=== PATIENT | male | born 1990 | race African-American/Black ===

== ENCOUNTER 2018-01-11 20:57 | Emergency (ER) | payer BC ==
--- NOTE | 2018-01-11 21:42 | EDM.PDOC ---
ED HPI GENERAL MEDICAL PROBLEM - General Chief Complaint: Upper Extremity Injury/Pain Stated Complaint: ARM HURT DUE TO A FALL IN [facility] Time Seen by Provider: 01/11/18 21:10 Source of Information: Reports: Patient History Limitations: Reports: No Limitations - History of Present Illness INITIAL COMMENTS - FREE TEXT/NARRATIVE: HISTORY AND PHYSICAL: History of present illness: [Patient comes to the emergency room for evaluation of left hand pain and right shoulder pain. He was walking in [facility] when he thinks that he slipped on some fruit that was on the floor causing him to slip and fall landing on his left arm and hand. He is complaining of left hand pain and right shoulder pain. This incident occurred about an hour prior to arrival in the ER. He has not taken any medication for his symptoms. no prior injuries to these areas Review of systems: As per history of present illness and below otherwise all systems reviewed and negative. Past medical history: As per history of present illness and as reviewed below otherwise noncontributory. Surgical history: As per history of present illness and as reviewed below otherwise noncontributory. Social history: No reported history of drug or alcohol abuse. Family history: As per history of present illness and as reviewed below otherwise noncontributory. Physical exam:. Gen.: Well-developed well-nourished dark skinned male in no acute distress. Extremities: Shoulder is atraumatic in appearance. Nontender with palpation. He has full range of motion of his right shoulder. No crepitus. Left hand is atraumatic in appearance. He is tender over the proximal metacarpals overlying the thumb area. No bruising or swelling appreciated. He has full range of motion. Neurovascular unremarkable. Neuro: Awake, alert, oriented. Motor and sensory unremarkable throughout. Exam nonfocal. Diagnostics: [R shoulder xray, L hand xray] Impression: [Right shoulder pain Left hand plain] Plan: [Discussed with patient that his x-rays show no abnormalities. Recommend close follow-up with local primary care, Tylenol alternating with ibuprofen as needed for discomfort. Ice packs may also help. He is in agreement with today's discussion. He is referred to local primary care] Definitive disposition and diagnosis as appropriate pending reevaluation and review of above. R shoulder, Left Hand Pain Score (Numeric/FACES): 8 - Related Data Allergies Allergy/AdvReac Type Severity Reaction Status Date / Time No Known Allergies Allergy Verified 01/11/18 21:23 Home Meds: Home Meds . [No Known Home Meds] 01/11/18 [History] Past Medical History - Past Health History Medical/Surgical History: Denies Medical/Surgical History Social & Family History - Family History Family Medical History: Noncontributory - Tobacco Use Smoking Status *Q: Current Every Day Smoker Years of Tobacco use: 8 Packs/Tins Daily: 0.1 - Caffeine Use Caffeine Use: Reports: Coffee, Energy Drinks, Tea - Alcohol Use Days Per Week of Alcohol Use: 2 Number of Drinks Per Day: 4 Total Drinks Per Week: 8 - Recreational Drug Use Recreational Drug Use: No Review of Systems - Review of Systems Review Of Systems: ROS reveals no pertinent complaints other than HPI. ED EXAM, GENERAL - Physical Exam Exam: See Below Course - Vital Signs Last Recorded V/S: Last Vital Signs Temp 97.2 F 01/11/18 21:21 Pulse 71 01/11/18 21:21 Resp 18 01/11/18 21:21 BP 156/63 H 01/11/18 21:21 Pulse Ox 94 L 01/11/18 21:21 - Orders/Labs/Meds Orders: Active Orders 24 hr Category Date Time Status Hand 2V Lt [CR] Stat Exams 01/11/18 21:21 Taken Shoulder Comp Rt [CR] Stat Exams 01/11/18 21:21 Taken Departure - Departure Time of Disposition: 22:00 Disposition: Home, Self-Care 01 Condition: Good Clinical Impression: Right shoulder pain, Left hand pain - Discharge Information Referrals: PCP,None [Primary Care Provider] - Forms: ED Department Discharge Additional Instructions: The following information is given to patients seen in the emergency department who are being discharged to home. This information is to outline your options for follow-up care. We provide all patients seen in our emergency department with a follow-up referral. The need for follow-up, as well as the timing and circumstances, are variable depending upon the specifics of your emergency department visit. If you don't have a primary care physician on staff, we will provide you with a referral. We always advise you to contact your personal physician following an emergency department visit to inform them of the circumstance of the visit and for follow-up with them and/or the need for any referrals to a consulting specialist. The emergency department will also refer you to a specialist when appropriate. This referral assures that you have the opportunity for follow-up care with a specialist. All of these measure are taken in an effort to provide you with optimal care, which includes your follow-up. Under all circumstances we always encourage you to contact your private physician who remains a resource for coordinating your care. When calling for follow-up care, please make the office aware that this follow-up is from your recent emergency room visit. If for any reason you are refused follow-up, please contact the [facility] emergency department at and asked to speak to the emergency department charge nurse. [facility] [address] [place] [id number] Your x-rays show no abnormality. Follow-up with your local primary care provider or establish care at the clinic listed above. Tylenol alternating with ibuprofen as needed for discomfort. Ice packs may be helpful. Return to ER as needed as discussed. - My Orders Last 24 Hours: My Active Orders 01/11/18 21:21 Hand 2V Lt [CR] Stat Shoulder Comp Rt [CR] Stat - Assessment/Plan Last 24 Hours: My Active Orders 01/11/18 21:21 Hand 2V Lt [CR] Stat Shoulder Comp Rt [CR] Stat
--- NOTE | 2018-01-13 12:01 | CR ---
EXAM DATE: 01/11/18 PATIENT'S AGE: 27 Patient: KAYLEY RODRIGUES Facility: [place], [place] Site . Site : 1990 Study: XRay Extremity Left hand [id number]/31/2018 9:48:12 PM Ordering Physician: Doctor Andrews Final Report: INDICATION: Fall, hand pain TECHNIQUE: Hand radiograph 2 views left COMPARISON: None FINDINGS: Bones: No acute fractures or aggressive bone lesions are identified. Joints: The carpal and metacarpal-phalangeal joints are unremarkable in appearance. The interphalangeal joints are normal in appearance. Soft tissues: Unremarkable. No radiopaque foreign bodies are seen. IMPRESSION: 1. No acute osseous injuries or abnormalities are noted. Dictated by: Benny Guzman MD @ 01/11/2018 22:02:35 (Electronic Signature) Report Signed by Proxy. KATYA
--- NOTE | 2018-01-13 12:02 | CR ---
EXAM DATE: 01/11/18 PATIENT'S AGE: 27 Patient: KAYLEY RODRIGUES Facility: [place], [place] Site . Site : 1990 Study: XRay Shoulder [id number]/31/2018 9:48:36 PM Ordering Physician: Doctor Andrews Final Report: INDICATION: Fall, shoulder pain TECHNIQUE: Shoulder radiograph 3 views right COMPARISON: None FINDINGS: Bones: No acute fractures or aggressive bone lesions are identified. Joints: The glenohumeral is unremarkable. The acromioclavicular joint is unremarkable. Soft tissues: Unremarkable. The visualized hemithorax is unremarkable in appearance. No radiopaque foreign bodies are seen. IMPRESSION: 1. No acute osseous injuries or abnormalities are noted. Dictated by: Benny Guzman MD @ 01/11/2018 22:03:03 (Electronic Signature) Report Signed by Proxy. KATYA
== END 2018-01-11 22:23 | disposition home or self-care (01) ==
LOC: MW.ED 20:57
DX: M25.511 Pain in right shoulder (principal); M79.642 Pain in left hand; F17.210 Nicotine dependence, cigarettes, uncomplicated
CPT/HCPCS: 73030-26-RT; 73030-RT; 73120-26-LT; 73120-LT; 99282; 99283